=== PATIENT | female | born 1985 | race Caucasian/White ===

== ENCOUNTER 2025-03-09 15:38 | Emergency (ER) | payer OTHER ==
[2025-03-09 15:51] VITALS: BP 131/82; PULSE 84; RESP 18; TEMP 98.2; BMI 40.9
[2025-03-09] MEDS ORDERED: ACETAMINOPHEN 500 MG TABLET (FP) ONE (16:52)
[2025-03-09] MEDS: ACETAMINOPHEN 500 MG TABLET (FP) PO ONE (16:57)
== END 2025-03-09 17:29 | disposition home or self-care (01) ==
LOC: JER 15:38
DX: S00.83XA Contusion of other part of head, initial encounter (principal); R42 Dizziness and giddiness; H93.19 Tinnitus, unspecified ear; W22.09XA Striking against other stationary object, initial encounter; Y99.0 Civilian activity done for income or pay
CPT/HCPCS: 99282-25